=== PATIENT | male | born 1995 | race African-American/Black ===

== ENCOUNTER 2018-10-23 18:00 | Emergency (ER) | payer OTHER ==
[2018-10-23 18:04] VITALS: BP 135/51; PULSE 62; TEMP 97; BMI 27.8
[2018-10-23] MEDS ORDERED: ASPIRIN 81 MG CHEWABLE TABLETS PO ONE (18:39)
--- NOTE | 2018-10-23 18:39 | PDOC ---
History of Present Illness - General History Source: Patient Exam Limitations: No Limitations <Juan Solo - Last Filed: 10/23/18 18:57> <Shaneka Schmidt - Last Filed: 10/24/18 01:04> - General Chief Complaint: Chest Pain Stated Complaint: CHEST PAIN Time Seen by Provider: 10/23/18 18:37 - History of Present Illness Initial Comments: 10/23/18 18:57 The patient is a 23 year old male with no past medical history who presents to the ED today complaining of chest pain since earlier today. The patient reports he developed substernal chest pain which radiates to the left axillary. Patient had no known risk factors and denies previous symptoms in the past. Denies family history of cardiac disease. Denies fevers or chills. Denies nausea or vomiting. Denies shortness of breath or palpitations. Denies any other symptoms. (Juan Solo) Past History <Juan Solo - Last Filed: 10/23/18 18:57> - Past Medical History COPD: No - Suicide/Smoking/Psychosocial Hx Smoking History: Never smoked <Shaneka Schmidt - Last Filed: 10/24/18 01:04> - Past Medical History Allergies/Adverse Reactions: Allergies Allergy/AdvReac Type Severity Reaction Status Date / Time No Known Allergies Allergy Verified 10/23/18 18:04 Review of Systems - Review of Systems Able to Perform ROS?: Yes All Other Systems: Reviewed and Negative <Juan Solo - Last Filed: 10/23/18 18:57> <Shaneka Schmidt - Last Filed: 10/24/18 01:04> - Review of Systems Comments:: 10/23/18 18:58 Absent: fever, chills, diaphoresis, generalized weakness, malaise, loss of appetite HEENT: Absent: rhinorrhea, nasal congestion, throat pain, throat swelling, difficulty swallowing, mouth swelling, ear pain, eye pain, visual Changes CARDIOVASCULAR: + chest pain Absent: syncope, palpitations, irregular heart rate, lightheadedness, peripheral edema RESPIRATORY: Absent: cough, shortness of breath, dyspnea with exertion, orthopnea, wheezing, stridor, hemoptysis GASTROINTESTINAL: Absent: abdominal pain, abdominal distension, nausea, vomiting, diarrhea, constipation, melena, hematochezia GENITOURINARY: Absent: dysuria, frequency, urgency, hesitancy, hematuria, flank pain, genital pain MUSCULOSKELETAL: Absent: myalgia, arthralgia, joint swelling SKIN: Absent: rash, itching, pallor HEMATOLOGIC/IMMUNOLOGIC: Absent: easy bleeding, easy bruising, lymphadenopathy, frequent infections ENDOCRINE: Absent: unexplained weight gain, unexplained weight loss, heat intolerance, cold intolerance NEUROLOGIC: Absent: headache, focal weakness or paresthesias, dizziness, unsteady gait, seizure, mental status changes, bladder or bowel incontinence PSYCHIATRIC: Absent: anxiety, depression, suicidal or homicidal ideation, hallucinations. (Juan Solo) *Physical Exam <Juan Solo - Last Filed: 10/23/18 18:57> <Shaneka Schmidt - Last Filed: 10/24/18 01:04> - Vital Signs Last Vital Signs Temp Pulse Resp BP Pulse Ox 97 F L 62 18 135/51 L 100 10/23/18 18:02 10/23/18 18:02 10/23/18 18:02 10/23/18 18:02 10/23/18 18:02 - Physical Exam Comments: 10/23/18 18:59 GENERAL: Well developed, well nourished. Awake and alert. No acute distress. HEENT: Normocephalic, atraumatic. PERRLA, EOMI. No conjunctival pallor. Sclera are non- icteric. Moist mucous membranes. Oropharynx is clear. NECK: Supple. Full ROM. No JVD. Carotid pulses 2+ and symmetric, without bruits. No thyromegaly. No lymphadenopathy. CARDIOVASCULAR: Regular rate and rhythm. No murmurs, rubs, or gallops. Distal pulses are 2+ and symmetric. PULMONARY: No evidence of respiratory distress. Lungs clear to auscultation bilaterally. No wheezing, rales or rhonchi. ABDOMINAL: Soft. Non-tender. Non-distended. No rebound or guarding. No organomegaly. Normoactive bowel sounds. MUSCULOSKELETAL Normal range of motion at all joints. No bony deformities or tenderness. No CVA tenderness. EXTREMITIES: No cyanosis. No clubbing. No edema. No calf tenderness. SKIN: Warm and dry. Normal capillary refill. No rashes. No jaundice. NEUROLOGICAL: Alert, awake, appropriate. Cranial nerves 2-12 intact. No deficits to light touch and temperature in face, upper extremities and lower extremities. No motor deficits in the in face, upper extremities and lower extremities. Normoreflexic in the upper and lower extremities. Normal speech. Toes are down- going bilaterally. Gait is normal without ataxia. PSYCHIATRIC: Cooperative. Good eye contact. Appropriate mood and affect. (Juan Solo) - Procedure Monitoring Vital Signs: Procedure Monitoring Vital Signs Temperature 97 F L 10/23/18 18:02 Pulse Rate 62 10/23/18 18:02 Respiratory Rate 18 10/23/18 18:02 Blood Pressure 135/51 L 10/23/18 18:02 O2 Sat by Pulse Oximetry (%) 100 10/23/18 18:02 ED Treatment Course - LABORATORY CBC & Chemistry Diagram: 10/23/18 19:20 10/23/18 19:20 <Shaneka Schmidt - Last Filed: 10/24/18 01:04> - ADDITIONAL ORDERS Additional order review: Laboratory Results 10/23/18 10/23/18 22:00 19:20 Sodium 144 Potassium 4.2 Chloride 107 Carbon Dioxide 30 Anion Gap 7 L BUN 28 H Creatinine 1.5 H Creat Clearance w eGFR 58.00 Random Glucose 84 Calcium 8.9 Total Bilirubin 0.4 AST 16 ALT 31 Alkaline Phosphatase 80 Creatine Kinase 246 Creatine Kinase Index 0.4 CK-MB (CK-2) < 1.0 Troponin I < 0.02 < 0.02 Total Protein 8.0 Albumin 4.5 10/23/18 19:20 RBC 4.92 MCV 87.4 MCHC 35.0 RDW 13.1 MPV 6.6 L Neutrophils % 51.4 Lymphocytes % 35.7 Monocytes % 7.5 Eosinophils % 4.5 Basophils % 0.9 - RADIOLOGY Radiology Studies Ordered: Category Date Time Status CHEST PA & LAT [RAD] Stat Radiology 10/23/18 18:40 Taken - Medications Given in the ED: ED Medications Discontinued Medications Generic Name Dose Route Start Last Admin Trade Name Freq PRN Reason Stop Dose Admin Acetaminophen 650 mg 10/23/18 21:50 10/23/18 23:20 Tylenol - PO 10/23/18 21:51 650 mg ONCE ONE Administration Al Hydroxide/Mg Hydroxide 30 ml 10/23/18 18:53 10/23/18 20:29 Mylanta Oral Suspension - PO 10/23/18 18:54 30 ml ONCE ONE Administration Aspirin 162 mg 10/23/18 18:39 10/23/18 20:29 Asa - PO 10/23/18 18:40 162 mg ONCE ONE Administration Pantoprazole Sodium 40 mg 10/23/18 18:56 10/23/18 20:29 Protonix - PO 10/23/18 18:57 40 mg ONCE ONE Administration Medical Decision Making <Juan Solo - Last Filed: 10/23/18 18:57> <Shaneka Schmidt - Last Filed: 10/24/18 01:04> - Medical Decision Making 10/23/18 22:55 23-year-old male presented 30 minutes after he developed chest pain that went into his left axilla. He points to his zyphoid area to designate the site of his pain No family history of early cardiac demise. Patient does not use tobacco or any illicit drugs He was eating [employer] food prior to this event Social history: no tobacco use,no illicit drug use,no family history of early cardiac demise EKG was sinus bradycardia 54 bpm, QTC is normal, there is minimal voltage for LVH, there is early repol 10/23/18 22:57 He did not have any back pain. He has 2 negative troponins Chest x-ray :NAPD, normal mediastinum, no effusion, no cardiomegaly, no infiltrates, no pneumothorax 10/23/18 23:28 10/24/18 00:13 pt states his pain is only there if he stretches his arm back or twists Patient was given instructions that if he ever experiences chest pain with shortness of breath,nausea,vomiting and pain radiating down arm or up to his neck-call 911. He states he is comfortable now with no pain unless he stretches his arm or twists his torso Impression chest pain plan referred to senior formulation scientist for echo 10/24/18 00:35 I went to speak to this patient and go over his chemistries because his creatinine was 1.5 and his bun was above 25 and also refer him to a senior formulation scientist for further evaluation. I felt that an echo would be beneficial . he could not be found in the emergency department. He left without discharge instructions 10/24/18 00:37 10/24/18 01:00 (Shaneka Schmidt) *DC/Admit/Observation/Transfer <Juan Solo - Last Filed: 10/23/18 18:57> <Shaneka Schmidt - Last Filed: 10/24/18 01:04> Diagnosis at time of Disposition: Chest pain, atypical - Discharge Dispostion Disposition: HOME Condition at time of disposition: Stable - Referrals Referrals: Manjeet Shah MD [Staff Physician] - Dre Dean MD [Staff Physician] - - Patient Instructions Printed Discharge Instructions: DI for Chest Pain Additional Instructions: Please followup with your physician and ask for cardiology referral for echo If you experience any worsening symptoms, return to the emergency department Your lab work shows that your kidney function is slightly elevated and you need to follow up with your doctor - Attestations Scribe Attestion: 10/23/18 19:00 Documentation prepared by Juan Solo, acting as medical field representative for Shaneka Schmidt MD (Juan Solo)
[2018-10-23] MEDS ORDERED: MAG HYDROX/AL HYDROX/SIMETH 30 ML UNIT-DOSE CUP PO ONE (18:53)
[2018-10-23] MEDS ORDERED: FAMOTIDINE 20 MG/50 ML IVPB 20 MG/50 ML MG IVPB ONE (18:55)
[2018-10-23] MEDS ORDERED: PANTOPRAZOLE 40 MG TABLET (FP) PO ONE (18:56)
[2018-10-23 19:29] LABS: BASO % 0.9 % (0-2.0); EOS % 4.5 % (0-4.5); HEMOGLOBIN 15.1 GM/dL (11.7-16.9); LYMPH % 35.7 % (8-40); MCH 30.6 pg (25.7-33.7); MEAN CELL VOLUME 87.4 fl (80-96); MEAN PLT VOLUME 6.6 fl (7.5-11.1); MONO % 7.5 % (3.8-10.2); NEUT % 51.4 % (42.8-82.8); PLATELET COUNT 251 K/MM3 (134-434); RBC 4.92 M/mm3 (4.00-5.60); RDW 13.1 % (11.9-15.9); WHITE BLOOD COUNT 5.1 K/mm3 (4.0-10.0)
[2018-10-23 20:00] LABS: ALBUMIN 4.5 g/dl (3.4-5.0); ALK PHOS 80 U/L (45-117); ANION GAP 7 MMOL/L (8-16); BILIRUBIN,TOTAL 0.4 mg/dL (0.2-1); BLOOD UREA NITROGEN 28 mg/dL (7-18); CALCIUM 8.9 mg/dL (8.5-10.1); CHLORIDE 107 mmol/L (98-107); CO2 30 mmol/L (21-32); CREATININE 1.5 mg/dL (0.55-1.3); GLUCOSE,RANDOM 84 mg/dL (74-106); POTASSIUM 4.2 mmol/L (3.5-5.1); SGOT/AST 16 U/L (15-37); SGPT/ALT 31 U/L (13-61); SODIUM 144 mmol/L (136-145)
[2018-10-23] MEDS ORDERED: PANTOPRAZOLE 40 MG TABLET (FP) ONE (20:23)
[2018-10-23] MEDS ORDERED: MAG HYDROX/AL HYDROX/SIMETH 30 ML UNIT-DOSE CUP ONE (20:23)
[2018-10-23] MEDS ORDERED: ASPIRIN 81 MG CHEWABLE TABLETS ONE (20:23)
[2018-10-23] MEDS ORDERED: ACETAMINOPHEN 325 MG TABLET (FP) PO ONE (21:50)
[2018-10-23] MEDS ORDERED: ACETAMINOPHEN 325 MG TABLET (FP) ONE (23:17)
--- NOTE | 2018-10-24 11:11 | EKG ---
Test Reason : Blood Pressure : / mmHG Vent. Rate : 054 BPM Atrial Rate : 054 BPM P-R Int : 170 ms QRS Dur : 108 ms QT Int : 412 ms P-R-T Axes : 023 073 039 degrees QTc Int : 390 ms SINUS BRADYCARDIA MINIMAL VOLTAGE CRITERIA FOR LVH, MAY BE NORMAL VARIANT ST ELEVATION, CONSIDER EARLY REPOLARIZATION, PERICARDITIS, OR INJURY ABNORMAL ECG WHEN COMPARED WITH ECG OF 23-OCT-2018 18:58, NO SIGNIFICANT CHANGE WAS FOUND Confirmed by RONNI WILCOX MD ([id number]) on 10/24/2018 11:11:28 AM Referred By: Confirmed By:RONNI WILCOX MD
--- NOTE | 2018-10-24 12:09 | EKG ---
Test Reason : Blood Pressure : / mmHG Vent. Rate : 054 BPM Atrial Rate : 054 BPM P-R Int : 170 ms QRS Dur : 102 ms QT Int : 408 ms P-R-T Axes : 035 073 042 degrees QTc Int : 386 ms SINUS BRADYCARDIA MINIMAL VOLTAGE CRITERIA FOR LVH, MAY BE NORMAL VARIANT ST ELEVATION, CONSIDER EARLY REPOLARIZATION, PERICARDITIS, OR INJURY ABNORMAL ECG NO PREVIOUS ECGS AVAILABLE Confirmed by RONNI WILCOX MD ([id number]) on 10/24/2018 12:08:52 PM Referred By: Confirmed By:RONNI WILCOX MD
--- NOTE | 2018-10-26 13:23 | EKG ---
Test Reason : Blood Pressure : / mmHG Vent. Rate : 053 BPM Atrial Rate : 053 BPM P-R Int : 174 ms QRS Dur : 106 ms QT Int : 410 ms P-R-T Axes : 024 070 034 degrees QTc Int : 384 ms SINUS BRADYCARDIA MINIMAL VOLTAGE CRITERIA FOR LVH, MAY BE NORMAL VARIANT NONSPECIFIC ST ABNORMALITY ST ELEVATION, CONSIDER EARLY REPOLARIZATION, PERICARDITIS, OR INJURY ABNORMAL ECG NO PREVIOUS ECGS AVAILABLE Confirmed by CAT SALMON, GILDA ([id number]) on 10/26/2018 1:22:31 PM Referred By: Confirmed By:GILDA SHELTON MD
== END 2018-10-24 01:10 | disposition home or self-care (01) ==
LOC: JER 18:00
PROC: 3E033GC Introduction of Other Therapeutic Substance into Peripheral Vein, Percutaneous Approach (ICD-10-PCS; principal; 2018-10-23)
DX: R07.9 Chest pain, unspecified (principal)
CPT/HCPCS: 36415; 71046-TC-FY; 80053; 82550; 82553; 84484; 85025; 93005; 93010; 99281-25